=== PATIENT | female | born 1955 | race Caucasian/White ===

== ENCOUNTER → 2021-01-18 | Day surgery (SDC) | payer MEDICARE ==
[~2021-01-18] MED LIST: ATOR20TA58 PO; DIPH25CA58 PO; FAMO20TA5 PO; FAMOTIDINE 20 MG/2 ML VIAL IVP ONE; FAMOTIDINE 20 MG/2 ML VIAL ONE; FERR325T14 PO; HYDR25TA PO; IPRATRPIUM/ALBUTEROL 0.5/2.5MG 3 ML NEBU. NEB PRN; IV RINGERS SOLUTION,LACTATED 1,000 ML IV SCH; LEVO75TA5 PO; LIDOCAINE 2% PF 5 ML VIAL. ONE; LISI1TAB23 PO; MIDAZOLAM HCL PF 2 MG/2 ML VIAL. IV ONE; OMEG-33 PO; ONDANSETRON PF 4 MG/2 ML VIAL. IV PRN; PARO30TA3 PO; PROPOFOL 10,000 MCG/ML (20ML) VIAL IV ONE; TRIA10.8 NS
[2021-01-18 14:01] VITALS: BP 123/92
== END | disposition home or self-care (01) ==
LOC: SURG 10:47
PROVIDERS: ATTEND Internal Medicine Gastroenterology
DX: Z12.11 Encounter for screening for malignant neoplasm of colon (principal); K57.30 Diverticulosis of large intestine without perforation or abscess without bleeding; K64.8 Other hemorrhoids; I10 Essential (primary) hypertension; E11.9 Type 2 diabetes mellitus without complications; E03.9 Hypothyroidism, unspecified; K21.9 Gastro-esophageal reflux disease without esophagitis; Z72.89 Other problems related to lifestyle; Z79.899 Other long term (current) drug therapy
CPT/HCPCS: G0121; J2001; J2704; J3490; J7120; 45378; G0105